=== PATIENT | female | born 1985 | race Caucasian/White ===

== ENCOUNTER 2017-04-18 18:44 | Emergency (ER) | payer OTHER ==
[~2017-04-18] VITALS: Ht 180.3 cm; Wt 127.0 kg
[~2017-04-18 18:44] MED LIST: AMOXICILLIN500 MG PO; AUGMENTIN 875-1 EACH PO; BENTYL10 MG PO; CELEXA40 MG PO; CLINDAMYCIN HC300 MG PO; CYCLOBENZAPRINE10 MG PO; DICYCLOMINE HCL20 MG PO; DOXYCYCLINE HY100 MG PO; ESCITALOPRAM OX20 MG PO; FLAGYL500 MG PO; FLUOXETINE HCL20 MG PO; HYDROCODON-ACE1 EAC3 PO; HYDROCODON-ACE1 EAC8 PO; HYDROCODONE-IB1 EACH PO; IBUPROFEN400 MG PO; IBUPROFEN600 MG PO; LIDOCAINE700 MG TOP; LIDODERM700 MG TOP; MEDROL4 M1 PO; MELOXICAM15 MG PO; METHOCARBAMOL750 MG PO; MIRTAZAPINE45 MG PO; NORCO 5-325 TA1 EACH PO; PERCOCET 5-3251 EACH; PERCOCET 5-3251 EACH PO; PROTONIX40 MG PO; PROZAC20 MG PO; ROBAXIN-750750 MG PO; TRAMADOL HCL50 MG PO; TRAZODONE HCL100 MG PO; TRI-LINYAH1 EACH PO; VICODIN 5-3001 EACH PO; ZOFRAN ODT4 MG SL
[2017-04-18] MEDS ORDERED: CLONIDINE HCL0.1 MG PO (19:32)
[2017-04-18] MEDS ORDERED: BUPRENORPHIN-N1 EACH SL (19:32)
[2017-04-18] MEDS ORDERED: VITAMIN D250000 UNIT PO (19:33)
[2017-04-18] MEDS ORDERED: NORCO 5-325 TA1 EACH PO (22:52)
[2017-04-21] MEDS ORDERED: LAMICTAL25 MG PO (14:58)
== END 2017-04-18 23:26 | disposition home or self-care (01) ==
LOC: ED 18:44
DX: R10.31 Right lower quadrant pain (principal); F32.9 Major depressive disorder, single episode, unspecified; F17.200 Nicotine dependence, unspecified, uncomplicated; Z85.41 Personal history of malignant neoplasm of cervix uteri; Z98.51 Tubal ligation status; Z88.1 Allergy status to other antibiotic agents; Z88.2 Allergy status to sulfonamides; Z98.890 Other specified postprocedural states
CPT/HCPCS: 74177; 80053; 81001; 83690; 84703; 85025; 96374; 99284; J2405; Q9967

== ENCOUNTER 2017-04-24 09:50 | Day surgery (SDC) | payer OTHER ==
[~2017-04-24] VITALS: Ht 180.3 cm; Wt 125.6 kg
[~2017-04-24 09:50] MED LIST changes: +BUPRENORPHIN-N1 EACH SL; +CLONIDINE HCL0.1 MG PO; +LAMICTAL25 MG PO; +VITAMIN D250000 UNIT PO
--- NOTE | 2017-04-24 12:00 | NUR ---
04/24/17 1200 Jackeline Tran 1156-PATIENT ARRIVED TO PACU ON 10L MASK O2 SAT 99% NONAROUSABLE ORAL AIRWAY IN PLACE. ABDOMEN ROUND AND SOFT. PASSING FLATUS. SR
--- NOTE | 2017-04-25 11:50 | OR ---
[facility] [address] [place], [place] [address] Signed DATE OF OPERATION: 04/24/2017 SURGEON: Liza West MD PREOPERATIVE DIAGNOSES: Weight loss, diarrhea, CT scan findings suggestive of cecal concentric mass. POSTOPERATIVE DIAGNOSES: 1. Normal cecum. 2. Mild inflammatory changes, left colon and rectosigmoid. PROCEDURE: Total colonoscopy to cecum with biopsies. ANESTHESIA: Intravenous sedation, propofol infusion. ANESTHESIOLOGIST: Liza Buckley CRNA. INDICATION: This 31-year-old white woman is a patient of Dr. Sergio Mena, but has been evaluated through the emergency room recently with complaints of 30-pound weight loss since December, degenerative disk disease with long-term pain medication, constipation alternating with diarrhea, nausea, vomiting, right-sided abdominal pain, and occasional blood per rectum. She recently was seen in the emergency room where a CT scan was performed which showed a concentric lesion of the cecum suggestive of "stricture or tumor." Given her young age, colon cancer is less likely, inflammatory bowel disease more likely, but with close questioning, her right-sided abdominal pain is variably between the right mid abdomen and right lower quadrant and the possibility of biliary disease considered as well. A gallbladder ultrasound was performed and found to be normal. She is admitted at this time to undergo colonoscopy to rule out a neoplasm of the cecum, mindful that a CCK-HIDA test will likely be undertaken in the near future. She has a strong family history of biliary disease. The risks of bleeding, infection, and perforation related to colonoscopy were reviewed with her. She understands and wished to proceed. FINDINGS: The prep was good. Complete colonoscopy was undertaken to the cecum. Thorough Electronically Signed By: LIZA WEST MD 04/25/17 1150 PATIENT NAME: CHRISTY HECK OPERATIVE REPORT DATE OF : 87 PHYSICIAN: LIZA WEST MD REPORT #: [id number] REPORT IS CONFIDENTIAL AND NOT TO BE RELEASED WITHOUT AUTHORIZATION [facility] [address] [place], [place] [address] Signed examination of the cecum, ileocecal valve area and so forth showed no evidence of lesion. The remaining colon showed no sign of polyps or diverticular formation. There was a fine reticular inflammatory appearance, however, though it did not suggest inflammatory bowel disease to my inspection. Biopsies were taken throughout nevertheless of course. DESCRIPTION OF PROCEDURE: The patient was brought to the endoscopy suite, placed in the lateral decubitus position, and given intravenous sedation with propofol infusional technique by the sorting machine attendant with full cardiopulmonary monitoring. She is morbidly obese with weight of 277 pounds. Digital rectal examination was undertaken and found to be normal. An Olympus video colonoscope was passed in the rectum and manipulated throughout the colon ultimately intubating the cecum and the ileocecal valve. Irrigation was undertaken as needed. The ileocecal valve and appendiceal orifice were normal. Irrigation was undertaken more fully and complete examination of the cecum and proximal ascending colon showed absolutely no concentric lesion to suggest neoplasm or inflammatory bowel disease stricture. The scope was withdrawn from that point. Random biopsies were taken upon withdrawal of scope throughout the colon. There was a fine reticular mucosal appearance of the left colon and sigmoid, but no overt signs of inflammatory bowel disease proper. The patient was taken to the recovery room in good condition. CONCLUDING DIAGNOSIS: No evidence of neoplasm of cecum, unlikely inflammatory bowel disease. PLAN: We will check CCK-HIDA test. Arrangements will be made further and to act upon the results. Liza West MD JM/MODL /[id number] Electronically Signed By: LIZA WEST MD 04/25/17 1150 PATIENT NAME: UMANGCHRISTYPATRICK WILSON OPERATIVE REPORT DATE OF : 87 PHYSICIAN: LIZA WEST MD REPORT #: [id number] REPORT IS CONFIDENTIAL AND NOT TO BE RELEASED WITHOUT AUTHORIZATION [facility] [address] [place] [address] Jeremy [place] [address] Signed cc: Sergio Mena Electronically Signed By: LIZA WEST MD 04/25/17 1150 PATIENT NAME: CHRISTY HECK OPERATIVE REPORT DATE OF : 87 PHYSICIAN: LIZA WEST MD REPORT #: [id number] REPORT IS CONFIDENTIAL AND NOT TO BE RELEASED WITHOUT AUTHORIZATION
== END 2017-04-24 12:55 | disposition home or self-care (01) ==
LOC: OPS 09:50 → DS 09:50 → OPS 11:30 → DS 11:30 → OPS 12:55
PROVIDERS: Surgery
PROC: 0DBL8ZX Excision of Transverse Colon, Via Natural or Artificial Opening Endoscopic, Diagnostic (ICD-10-PCS; 2017-04-24)
PROC: 0DBN8ZX Excision of Sigmoid Colon, Via Natural or Artificial Opening Endoscopic, Diagnostic (ICD-10-PCS; 2017-04-24)
PROC: 0DBP8ZX Excision of Rectum, Via Natural or Artificial Opening Endoscopic, Diagnostic (ICD-10-PCS; 2017-04-24)
PROC: 0DBG8ZX Excision of Left Large Intestine, Via Natural or Artificial Opening Endoscopic, Diagnostic (ICD-10-PCS; 2017-04-24)
PROC: 0DBH8ZX Excision of Cecum, Via Natural or Artificial Opening Endoscopic, Diagnostic (ICD-10-PCS; principal; 2017-04-24 11:30)
DX: K62.6 Ulcer of anus and rectum (principal); E66.01 Morbid (severe) obesity due to excess calories; L65.9 Nonscarring hair loss, unspecified; F17.210 Nicotine dependence, cigarettes, uncomplicated; Z88.1 Allergy status to other antibiotic agents; Z79.899 Other long term (current) drug therapy; Z98.51 Tubal ligation status; Z98.890 Other specified postprocedural states; Z80.0 Family history of malignant neoplasm of digestive organs; Z68.38 Body mass index [BMI] 38.0-38.9, adult
CPT/HCPCS: 00810; J2405; J2704

== ENCOUNTER 2019-04-19 05:35 | Emergency (ER) | payer OTHER ==
[~2019-04-19] VITALS: Ht 180.3 cm; Wt 140.6 kg
--- OUTSIDE RECORDS SUMMARY | ~2019-04-19 | XMS | Encounter Summary ---
Demographics + + + | Address | [address] | | | [place] [address] | + + + | Home Phone | | + + + | Preferred Language | Unknown | + + + | Marital Status | Unknown | + + + | Jehovah'S Witness Affiliation | Unknown | + + + | Race | Unknown | + + + | Ethnic Group | Unknown | + + + Author + + + | Author | [facility] | | | and [place] | + + + | Organization | [facility] | | | and [place] | + + + | Address | Unknown | + + + | Phone | Unavailable | + + + Care Team Providers + +------+ + | Care Strip Catcher Name | Role | Phone | + +------+ + PCP | Unavailable | + +------+ + Encounter Details +--------+ + + + + | Date | Type | Department | Care Team | Description | +--------+ + + + + | 08/19/ | [facility] | [facility] | Lencho Tran MD | | | 2016 | Encounter | [facility] | [address] | | | | | [address] | [facility] [place] | | | | | [address] [facility], | [address] | | | | | [place] [address] | | | | | | [phone] | | | +--------+ + + + [...] on file | | + + + + + + + | Job Start Date | Occupation | Industry | + + + + | Not on file | Not on file | Not on file | + + + + + + + + | Travel History | Travel Start | Travel End | + + + + + + | No recent travel history available. | + + documented as of this encounter Plan of Treatment Not on filedocumented as of this encounter Visit Diagnoses Not on filedocumented in this encounter"
--- OUTSIDE RECORDS SUMMARY | ~2019-04-19 | XMS | Clinical Summary ---
Demographics + + + | Address | [address] | | | [place] [address] | + + + | Home Phone | | + + + | Preferred Language | Unknown | + + + | Marital Status | Unknown | + + + | Latter-Day Affiliation | Unknown | + + + | Race | Unknown | + + + | Ethnic Group | Unknown | + + + Author + + + | Author | [facility] | | | and Rc | + + + | Organization | [facility] | | | and [place] | + + + | Address | Unknown | + + + | Phone | Unavailable | + + + Care Team Providers + +------+ + | Care Test Rider Name | Role | Phone | + [...] recent travel history available. | + + Last Filed Vital Signs + [...] + + Plan of Treatment + + + + + | Health Maintenance | Due Date | Last Done | Comments | + + + + + | Vaccine: | | | | | Dtap/Tdap/Td (1 - | 6 | | | | Tdap) | | | | + + + + + | Cervical Cancer | | | | | Screening (Pap) | 7 | | | + + + + + | Vaccine: Influenza | | | | | (#1) | 9 | | | + + + + + Results Not on filefrom Last 3 Months
--- OUTSIDE RECORDS SUMMARY | ~2019-04-19 | XMS | Encounter Summary ---
Demographics + + + | Address | [address] | | | [place] [address] | + + + | Home Phone | | + + + | Preferred Language | Unknown | + + + | Marital Status | Unknown | + + + | Jewish Affiliation | Unknown | + + + | Race | Unknown | + + + | Ethnic Group | Unknown | + + + Author + + + | Author | [facility] | | | and [place] | + + + | Organization | [facility] | | | and [place] | + + + | Address | Unknown | + + + | Phone | Unavailable | + + + Care Team Providers + +------+ + | Care Canceling And Cutting Control Clerk Name | Role | Phone | + +------+ + PCP | Unavailable | + +------+ + Encounter Details +--------+ + + + + | Date | Type | Department | Care Team | Description | +--------+ + + + + | 08/19/ | [facility] | [facility] | Lencho Tran MD | | | 2016 | Encounter | [facility] | [address] | | | | | [address] | [facility] [place] | | | | | [address] [facility], | [address] | | | | | [place] [address] | | | | | | [phone] | | | +--------+ + + + [...]
--- OUTSIDE RECORDS SUMMARY | ~2019-04-19 | XMS | Clinical Summary ---
Demographics + + + | Address | [address] | | | [place] [address] | + + + | Home Phone | | + + + | Preferred Language | Unknown | + + + | Marital Status | Unknown | + + + | Sabianist Affiliation | Unknown | + + + | Race | Unknown | + + + | Ethnic Group | Unknown | + + + Author + + + | Author | [facility] | | | and Rc | + + + | Organization | [facility] | | | and [place] | + + + | Address | Unknown | + + + | Phone | Unavailable | + + + Care Team Providers + +------+ + | Care Promotional Model Name | Role | Phone | + [...]
[~2019-04-19 05:35] MED LIST changes: +AMITRIPTYLINE H50 MG PO; +GUANFACINE HCL E1 MG PO; +LEVOTHYROXINE25 MCG PO; +LITHIUM CARBON450 MG PO
--- OUTSIDE RECORDS SUMMARY | 2019-04-19 05:38 | XMS ---
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 EJame VISIT COUNT (12 MO.) 4 [facility] TOTAL 4 NOTE: Visits indicate total known visits. ED/UCC VISIT TRACKING (12 MO.) 04/19/2019 05:35 [facility] [place] TYPE: Emergency COMPLAINT: - FLU SYMPTOMS 11/28/2018 06:47 [facility] [place] TYPE: Emergency COMPLAINT: - DENTAL PAIN,NAUSEA DIAGNOSES: - Major depressive disorder, single episode, unspecified - Allergy status to sulfonamides status - Other long term care administrator (current) drug therapy - Nicotine dependence, unspecified, uncomplicated - Allergy status to other antibiotic agents status - Other specified disorders of teeth and supporting structures 04/28/2018 13:50 [facility] [place] TYPE: Emergency COMPLAINT: - FACIAL SWELLING DIAGNOSES: - Periapical abscess without sinus - Allergy status to sulfonamides status - Other long term care administrator (current) drug therapy - Allergy status to other antibiotic agents status - Nicotine dependence, unspecified, uncomplicated - Major depressive disorder, single episode, unspecified - Other specified disorders of teeth and supporting structures 04/28/2018 13:[address] [facility] [place] TYPE: Emergency COMPLAINT: - FACIAL SWELLING DIAGNOSES: - Major depressive disorder, single episode, unspecified - Other specified disorders of teeth and supporting structures - Other senior care (current) drug therapy - Allergy status to sulfonamides status - Nicotine dependence, unspecified, uncomplicated - Allergy status to other antibiotic agents status INPATIENT VISIT TRACKING (12 MO.) No inpatient visits to display in this time frame [email or web address]
[2019-04-19] MEDS ORDERED: CEPHALEXIN500 MG PO (06:08)
== END 2019-04-19 06:22 | disposition home or self-care (01) ==
LOC: ED 05:35
DX: J98.8 Other specified respiratory disorders (principal); B97.89 Other viral agents as the cause of diseases classified elsewhere; F31.9 Bipolar disorder, unspecified; F43.10 Post-traumatic stress disorder, unspecified; F17.200 Nicotine dependence, unspecified, uncomplicated; Z88.2 Allergy status to sulfonamides; Z88.1 Allergy status to other antibiotic agents; Z79.899 Other long term (current) drug therapy
CPT/HCPCS: 87502; 99283

== ENCOUNTER 2020-01-12 12:17 | Emergency (ER) | payer OTHER ==
[~2020-01-12] VITALS: Ht 180.3 cm; Wt 158.8 kg
--- OUTSIDE RECORDS SUMMARY | ~2020-01-12 | XMS | Encounter Summary ---
Demographics + + + | Address | [address] | | | [place] [address] | + + + | Home Phone | | + + + | Preferred Language | Unknown | + + + | Marital Status | Unknown | + + + | Adventism Affiliation | Unknown | + + + | Race | Unknown | + + + | Ethnic Group | Unknown | + + + Author + + + | Author | [facility] | | | and [place] | + + + | Organization | [facility] | | | and iDego[place] | + + + | Address | Unknown | + + + | Phone | Unavailable | + + + Care Team Providers + +------+ + | Care Lab Animal Technician Name | Role | Phone | + +------+ + PCP | Unavailable | + +------+ + Encounter Details +--------+ + + + + | Date | Type | Department | Care Team | Description | +--------+ + + + + | 08/19/ | [facility] | [facility] | Lencho Tran MD | | | 2016 | Encounter | [facility] | [address] | | | | | [address] | [facility] [place] | | | | | [address] [facility], | [address] | | | | | [place] [address] | | | | | | [phone] | | | +--------+ + + + + Social History + +-------+ +--------+------+ | Tobacco Use | Types | Packs/Day | Years | Date | | | | | Used | | + +-------+ +--------+------+ | Never Assessed | | | | | + +-------+ +--------+------+ + + + | Sex Assigned at | Date Recorded | | | | + + + | Not on file | | + + + documented as of this encounter Plan of Treatment Not on filedocumented as of this encounter Visit Diagnoses Not on filedocumented in this encounter"
--- OUTSIDE RECORDS SUMMARY | ~2020-01-12 | XMS | Clinical Summary ---
Demographics + + + | Address | [address] | | | [place] [address] | + + + | Home Phone | | + + + | Preferred Language | Unknown | + + + | Marital Status | Unknown | + + + | Religion Affiliation | Unknown | + + + | Race | Unknown | + + + | Ethnic Group | Unknown | + + + Author + + + | Author | [facility] | | | and Rc | + + + | Organization | [facility] | | | and [place] | + + + | Address | Unknown | + + + | Phone | Unavailable | + + + Care Team Providers + +------+ + | Care Licensing Court Magistrate Name | Role | Phone | + +------+ + PCP | Unavailable | + +------+ + Allergies Not on File Medications Not on file Active Problems Not on file Social History + +-------+ +--------+------+ | Tobacco [...] on file | | + + + Last Filed Vital Signs + + + + + | Vital Sign | Reading | Time Taken | Comments | + + + + + | Blood Pressure | 140/80 | 08/20/2015 11:30 AM | | | | | PDT | | + + + + + | Pulse | 91 | 08/20/2015 11:30 AM | | | | | PDT | | + + + + + | Temperature | - | - | | + + + + + | Respiratory Rate | 20 | 08/20/2015 11:30 AM | | | | | PDT | | + + + + + | Oxygen Saturation | 98% | 08/20/2015 11:30 AM | | | | | PDT | | + + + + + | Inhaled Oxygen | - | - | | | Concentration | | | | + + + + + | Weight | 129.6 kg (285 lb 9.7 | 08/20/2015 11:30 AM | | | | oz) | PDT | | + + + + + | Height | 177.8 cm (5' 10") | 08/20/2015 11:30 AM | | | | | PDT | | + + + + + | Body Mass Index | 40.98 | 08/20/2015 11:30 AM | | | | | PDT | | + + + + + Plan of Treatment + + +-------+ + | Health Maintenance | Due Date | Last | Comments | | | | Done | | + + +-------+ + | Vaccine: | | | | | Dtap/Tdap/Td (1 - | 6 | | | | Tdap) | | | | + + +-------+ + | Cervical Cancer | | | | | Screening (Pap) | 7 | | | + + +-------+ + | Vaccine: Influenza | | | | | (#1) | 0 | | | + + +-------+ + Results Not on filefrom Last 3 Months
[~2020-01-12 12:17] MED LIST changes: +CEPHALEXIN500 MG PO
--- OUTSIDE RECORDS SUMMARY | 2020-01-12 12:20 | XMS ---
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 Reymundo VISIT COUNT (12 MO.) 2 AYAH Swain TOTAL 2 NOTE: Visits indicate total known visits. ED/UCC VISIT TRACKING (12 MO.) 01/12/2020 12:18 [facility] [place] TYPE: Emergency COMPLAINT: - CHEST PRESSURE 04/19/2019 05:35 [facility] [place] TYPE: Emergency COMPLAINT: - FLU SYMPTOMS DIAGNOSES: - Other viral agents as the cause of diseases classified elsew - Bipolar disorder, unspecified - Allergy status to other antibiotic agents status - Other specified respiratory disorders - Nicotine dependence, unspecified, uncomplicated - Other manager terminal (current) drug therapy - Post-traumatic stress disorder, unspecified - Allergy status to sulfonamides status - Cough INPATIENT VISIT TRACKING (12 MO.) No inpatient visits to display in this time frame [email or web address]
[2020-01-12] MEDS ORDERED: GABAPENTIN100 MG (12:37)
--- NOTE | 2020-01-12 13:22 | EKG ---
[facility] [address] [facility] [place] [address] Signed Sinus rhythm with occasional premature ventricular complexes Nonspecific ST abnormality Abnormal ECG No previous ECGs available Confirmed by ESATON VERDUGO MD ([id number]) on 01/12/2020 1:22:30 PM Electronically Signed By: EASTON VERDUGO MD 01/12/20 1322 PATIENT NAME: CHRISTY HECK Electrocardiogram DATE OF : 87 PHYSICIAN: EASTON VERDUGO MD REPORT #: [id number] REPORT IS CONFIDENTIAL AND NOT TO BE RELEASED WITHOUT AUTHORIZATION
== END 2020-01-12 14:43 | disposition home or self-care (01) ==
LOC: ED 12:17
DX: R07.89 Other chest pain (principal); F43.10 Post-traumatic stress disorder, unspecified; F32.9 Major depressive disorder, single episode, unspecified; F17.200 Nicotine dependence, unspecified, uncomplicated; Z88.2 Allergy status to sulfonamides; Z88.1 Allergy status to other antibiotic agents; Z79.899 Other long term (current) drug therapy
CPT/HCPCS: 71045; 80053; 83690; 84484; 85025; 85379; 93005; 93010; 96374; 99285-25; J1885

== ENCOUNTER 2020-04-06 07:33 | Emergency (ER) | payer OTHER ==
[~2020-04-06] VITALS: Ht 180.3 cm; Wt 158.8 kg
--- NOTE | ~2020-04-06 | EKG ---
[facility] [address] [facility] [place], [place] [address] Draft EK completed, results pending confirmation PATIENT NAME: UMANGCHRISTY Electrocardiogram DATE OF : 87 PHYSICIAN: PRELIMINARY REPORT #: [id number] REPORT IS CONFIDENTIAL AND NOT TO BE RELEASED WITHOUT AUTHORIZATION
[~2020-04-06 07:33] MED LIST changes: +GABAPENTIN100 MG
[2020-04-06] MEDS ORDERED: LATUDA40 MG PO (07:51)
[2020-04-06] MEDS ORDERED: PREDNISONE20 MG PO (11:52)
[2020-04-06] MEDS ORDERED: ZITHROMAX250 MG PO (11:52)
--- NOTE | 2020-04-07 13:46 | EKG ---
[facility] [address] [facility] [place], [place] [address] Signed Normal sinus rhythm Normal ECG When compared with ECG of 06-APR-2020 07:53, (Unconfirmed) Previous ECG has undetermined rhythm, needs review Confirmed by SAAD LEVI DO ([id number]) on 04/07/2020 1:45:39 PM Electronically Signed By: SAAD LEVI DO 04/07/20 1346 PATIENT NAME: CHRISTY HECK Electrocardiogram DATE OF : 87 PHYSICIAN: SAAD LEVI DO REPORT #: [id number] REPORT IS CONFIDENTIAL AND NOT TO BE RELEASED WITHOUT AUTHORIZATION
== END 2020-04-06 12:08 | disposition home or self-care (01) ==
LOC: ED 07:33
DX: J40 Bronchitis, not specified as acute or chronic (principal); J02.9 Acute pharyngitis, unspecified; F43.10 Post-traumatic stress disorder, unspecified; F31.81 Bipolar II disorder; F17.200 Nicotine dependence, unspecified, uncomplicated; Z88.1 Allergy status to other antibiotic agents; Z88.2 Allergy status to sulfonamides; Z79.899 Other long term (current) drug therapy; Z20.828 Contact with and (suspected) exposure to other viral communicable diseases
CPT/HCPCS: 71045; 87880; 93005; 93010; 99284-25; C9803; U0003

== ENCOUNTER 2022-12-22 12:09 | Emergency (ER) | payer OTHER ==
[~2022-12-22] VITALS: Ht 180.3 cm; Wt 155.0 kg
--- OUTSIDE RECORDS SUMMARY | ~2022-12-22 | XMS | Continuity of Care Document ---
Demographics + + + | Address | [address] | | | [place] [address] | + + + | Preferred Language | Unknown | + + + | Marital Status | | + + + | Scientology Affiliation | Unknown | + + + | Race | White | + + + | Ethnic Group | Not or | + + + Author + + + | Author | [facility] | + + + | Organization | [facility] | + + + | Address | [address] | | | [place] [address] | + + + | Phone | | + + + Care Team Providers + + + + | Care Machine Skiver Name | Role | Phone | + + + + Unavailable | Unavailable | + + + + Unavailable | Unavailable | + + + + Unavailable | Unavailable | + + + + Allergies and Intolerances + + + + + + | date | description | facility | reaction | severity | + + + + + + | (no date) | Trimethoprim | [facility] | (no reaction) | (no severity) | [facility] | | | + + + + + + | (no date) | Urticaria | [facility] | (no reaction) | (no severity) | | [facility] | | | + + + + + + | (no date) | Trimethoprim | [facility] | (no reaction) | (no severity) | | [facility] | | | + + + + + + | (no date) | Trimethoprim | [facility] | (no reaction) | (no severity) | | [facility] | | | + + + + + + | (no date) | Sulfa | [facility] | (no reaction) | (no severity) | | | (Sulfonamide | | | | | | Antibiotics) | | | | + + + + + + | (no date) | trimethoprim | [facility] | (no reaction) | (no severity) | + + + + + + Encounters No information. Functional Status No information. Immunizations No information. Medications + + + + | date | description | facility | + + + + | 2015-02-14 00:00 | METHOCARBAMOL | [facility] | + + + + | 2015-02-14 00:00 | LIDOCAINE | [facility] | + + + + | 2022-07-29 00:00 | LURASIDONE HCL | [facility] | + + + + | 2022-07-29 00:00 | FLUOXETINE HCL | [facility] | + + + + | 2013 00:00 | OXYCODONE | [facility] | | | HCL/ACETAMINOPHEN | | + + + + | 2022-07-29 00:00 | OXYCODONE | [facility] | | | HCL/ACETAMINOPHEN | | + + + + | 2022-07-29 00:00 | LAMOTRIGINE | [facility] | + + + + | 2014-08-07 00:00 | HYDROCODONE | [facility] | | | BIT/ACETAMINOPHEN | | + + + + | 2022-07-29 00:00 | NORGESTIMATE-ETHINYL | [facility] | | | ESTRADIOL | | + + + + | 2022-07-29 00:00 | ERGOCALCIFEROL (VITAMIN | [facility] | | | D2) | | + + + + | 2022-07-29 00:00 | Ergocalciferol (Vitamin | [facility] | | | D2) | | + + + + | 2022-07-29 00:00 | MELOXICAM | [facility] | + + + + | 2022-07-29 00:00 | GUANFACINE HCL | [facility] | + + + + | 2015-02-06 00:00 | IBUPROFEN | [facility] | + + + + | 2015-02-14 00:00 | IBUPROFEN | [facility] | + + + + | 2015-12-25 00:00 | IBUPROFEN | [facility] | + + + + | 2022-07-29 00:00 | LITHIUM CARBONATE | [facility] | + + + + | 2022-07-29 00:00 | METHOCARBAMOL | [facility] | + + + + | 2020-04-06 00:00 | AZITHROMYCIN | [facility] | + + + + | 2022-07-29 00:00 | CITALOPRAM HYDROBROMIDE | [facility] | + + + + | 2012-10-14 00:00 | CLINDAMYCIN HCL | [facility] | + + + + | 2013-11-19 00:00 | PANTOPRAZOLE SODIUM | [facility] | + + + + | 2018-04-28 00:00 | AMOXICILLIN | [facility] | + + + + | 2019-04-19 00:00 | CEPHALEXIN | [facility] | + + + + | 2022-07-29 00:00 | FLUOXETINE HCL | [facility] | + + + + | 2022-07-29 00:00 | GABAPENTIN | [facility] | + + + + | 2022-07-29 00:00 | MIRTAZAPINE | [facility] | + + + + | 2020-04-06 00:00 | predniSONE | [facility] | + + + + | 2022-07-29 00:00 | SPIRONOLACTONE | [facility] | + + + + | 2022-07-29 00:00 | ESCITALOPRAM OXALATE | [facility] | + + + + | 2022-07-29 00:00 | BUPRENORPHINE HCL/NALOXONE | [facility] | | | HCL | | + + + + | 2022-07-29 00:00 | CYCLOBENZAPRINE HCL | [facility] | + + + + | 2015-02-14 00:00 | methylPREDNISolone | [facility] | + + + + | 2013-11-19 00:00 | TRAMADOL HCL | [facility] | + + + + | 2016-02-12 00:00 | TRAMADOL HCL | [facility] | + + + + | 2022-07-29 00:00 | TRAMADOL HCL | [facility] | + + + + | 2022-07-29 00:00 | DICLOFENAC SODIUM | [facility] | + + + + | 2022-07-29 00:00 | TRAZODONE HCL | [facility] | + + + + | 2022-07-29 00:00 | AMITRIPTYLINE HCL | [facility] | + + + + | 2022-07-29 00:00 | HYDROCODONE | [facility] | | | BIT/ACETAMINOPHEN | | + + + + | 2022-07-29 00:00 | HYDROCODONE | [facility] | | | BIT/ACETAMINOPHEN | | + + + + | 2012-10-14 00:00 | HYDROCODONE | [facility] | | | BIT/ACETAMINOPHEN | | + + + + | 2015-02-06 00:00 | HYDROCODONE | [facility] | | | BIT/ACETAMINOPHEN | | + + + + | 2017-04-18 00:00 | HYDROCODONE | [facility] | | | BIT/ACETAMINOPHEN | | + + + + | 2022-07-29 00:00 | GUANFACINE HCL | [facility] | + + + + | 2022-07-29 00:00 | METOPROLOL SUCCINATE | [facility] | + + + + | 2013 00:00 | ONDANSETRON | [facility] | + + + + | 2022-07-29 00:00 | CLONIDINE HCL | [facility] | + + + + | 2022-07-29 00:00 | LEVOTHYROXINE SODIUM | [facility] | + + + + | 2013-12-13 00:00 | DICYCLOMINE HCL | [facility] | + + + + | 2022-07-29 00:00 | DICYCLOMINE HCL | [facility] | + + + + Problems + + + + | date | description | facility | + + + + | 2014-07-22 00:00 | Vaginal bleeding | [facility] | + + + + | 2014-07-24 00:00 | Acute infection of female | [facility] | | | upper reproductive tract | | + + + + | 2014-07-24 00:00 | Pain in pelvis | [facility] | + + + + | 2014-08-07 00:00 | Dysfunctional uterine | [facility] | | | bleeding | | + + + + | 2015-02-06 00:00 | Sciatica of left side | [facility] | + + + + | 2015-02-06 00:00 | Pain of left lower | [facility] | | | extremity | | + + + + | 2015-02-14 00:00 | Lumbar back pain with | [facility] | | | radiculopathy affecting | | | | left lower extremity | | + + + + | 2015-02-14 00:00 | Sciatica | [facility] | + + + + | 2015-09-10 00:00 | Headache | [facility] | + + + + | 2015-10-19 00:00 | Frontal headache | [facility] | + + + + | 2015-12-25 00:00 | Toothache | [facility] | + + + + | 2016-02-12 00:00 | Leukocytosis | [facility] | + + + + | 2016-02-12 00:00 | Recurrent abdominal pain | [facility] | + + + + | 2017-04-18 00:00 | Right lower quadrant | [facility] | | | abdominal pain | | + + + + | 2018-04-28 00:00 | Periapical abscess | [facility] | + + + + | 2018-04-28 00:00 | Encounter for medical | [facility] | | | screening examination | | + + + + | 2019-04-19 00:00 | Viral respiratory | [facility] | | | infection | | + + + + | 2020-04-06 00:00 | Pharyngitis | [facility] | + + + + | 2020-04-06 00:00 | Bronchitis | [facility] | + + + + | 2020-04-06 00:00 | Shortness of breath | [facility] | + + + + | 2021-10-12 00:00 | Patient left without being | [facility] | | | seen | | + + + + | 2022-03-19 12:29 | EFFUSION, LEFT KNEE | [facility] | + + + + | 2022-03-19 12:29 | SPRAIN OF OTHER SPECIFIED | [facility] | | | PARTS OF LEFT KNEE, INIT | | | | ENCNTR | | + + + + | 2022-05-05 13:48 | EFFUSION, LEFT KNEE | [facility] | + + + + | 2022-05-05 13:48 | OTH TEAR OF MEDIAL | [facility] | | | MENISCUS, CURRENT INJURY, | | | | LEFT KNEE, INIT | | + + + + | 2022-07-26 14:42 | ENCOUNTER FOR OTHER | [facility] | | | PREPROCEDURAL EXAMINATION | | + + + + | 2022-07-29 06:25 | Essential (primary) | [facility] | | | hypertension | | + + + + | 2022-07-29 06:25 | OTH TEAR OF MEDIAL | [facility] | | | MENISCUS, CURRENT INJURY, | | | | LEFT KNEE, INIT | | + + + + | 2022-07-29 06:25 | OTH TEAR OF MEDIAL | [facility] | | | MENISCUS, CURRENT INJ | | + + + + | 2022-10-31 14:52 | MASTODYNIA | [facility] | + + + + | 2022-10-31 15:00 | MASTODYNIA | [facility] | + + + + | 2022-12-14 06:43 | FATTY (CHANGE OF) LIVER, | [facility] | | | NOT ELSEWHERE C | | + + + + | 2022-12-14 06:43 | FATTY (CHANGE OF) LIVER, | [facility] | | | NOT ELSEWHERE CLASSIFIED | | + + + + | 2022-12-14 06:43 | HEPATOMEGALY, NOT | [facility] | | | ELSEWHERE CLASSIFIED | | + + + + | 2022-12-14 07:00 | FATTY (CHANGE OF) LIVER, | [facility] | | | NOT ELSEWHERE C | | + + + + Procedures No information. Results/Labs +--------+--------+ +---------+--------+---------+ | test | date | facility | value | unit | notes | +--------+--------+ +---------+--------+---------+ + + | Result panel 1 | + + + + + +-------+ + + | | 2022-07-26 | [facility] | 6.5 | (missing) | (missing) | | (unavailable | [facility]:07 [facility] | | | | + + + +-------+ + + + + | Result panel 2 | + + + + + +--------+ + + | | 2022-07-26 | [facility] | 50.8 | (missing) | (missing) | | (unavailable | 15:01:07 [facility] | | | | + + + +--------+ + + + + | Result panel 3 | + + + + + +--------+ + + | | 2022-07-26 | [facility] | 39.5 | (missing) | (missing) | | (unavailable | 15::07 [facility] | | | | + + + +--------+ + + + + | Result panel 4 | + + + + + +-------+ + + | | 2022-07-26 | [facility] | 5.5 | (missing) | (missing) | | (unavailable | 15::07 [facility] | | | | + + + +-------+ + + + + | Result panel 5 | + + + + + +-------+ + + | | 2022-07-26 | [facility] | 3.4 | (missing) | (missing) | | (unavailable | 15:: [facility] | | | | + + + +-------+ + + + + | Result panel 6 | + + + + + +-------+ + + | | 2022-07-26 | [facility] | 0.8 | (missing) | (missing) | | (unavailable | 15::07 [facility] | | | | + + + +-------+ + + + + | Result panel 7 | + + + + + +-------+---------+ + | | 2022-07-26 | [facility] | 111 | mg/dL | (missing) | | (unavailable | 15::07 [facility] | | | | + + + +-------+---------+ + + + | Result panel 8 | + + + + + +-----+---------+ + | | 2022-07-26 | [facility] | 8 | mg/dL | (missing) | | (unavailable | 15::07 [facility] | | | | + + + +-----+---------+ + + + | Result panel 9 | + + + + + +--------+---------+ + | | 2022-07-26 | [facility] | 0.97 | mg/dL | (missing) | | (unavailable | 15:01:07 [facility] | | | | + + + +--------+---------+ + + + | Result panel 10 | + + + + + +------+ + + | | 2022-07-26 | [facility] | 78 | (missing) | (missing) | | (unavailable | 15:01:07 [facility] | | | | + + + +------+ + + + + | Result panel 11 | + + + + + +--------+ + + | | 2022-07-26 | [facility] | 8.24 | (missing) | (missing) | | (unavailable | 15:01:07 [facility] | | | | + + + +--------+ + + + + | Result panel 12 | + + + + + +--------+ + + | | 2022-07-26 | [facility] | 4.19 | (missing) | (missing) | | (unavailable | 15:01:07 [facility] | | | | + + + +--------+ + + + + | Result panel 13 | + + + + + +-------+ + + | | 2022-07-26 | [facility] | 142 | (missing) | (missing) | | (unavailable | 15:: | [facility] | | | | + + + +-------+ + + + + | Result panel 14 | + + + + + +-------+ + + | | 2022-07-26 | [facility] | 4.2 | (missing) | (missing) | | (unavailable | 15::07 [facility] | | | | + + + +-------+ + + + + | Result panel 15 | + + + + + +-------+ + + | | 2022-07-26 | [facility] | 103 | (missing) | (missing) | | (unavailable | 15:01:07 [facility] | | | | + + + +-------+ + + + + | Result panel 16 | + + + + + +------+ + + | | 2022-07-26 | [facility] | 32 | (missing) | (missing) | | (unavailable | 15:01:07 [facility] | | | | + + + +------+ + + + + | Result panel 17 | + + + + + +--------+ + + | | 2022-07-26 | [facility] | 11.2 | (missing) | (missing) | | (unavailable | 15: [facility] | | | | + + + +--------+ + + + + | Result panel 18 | + + + + + +-------+---------+ + | | 2022-07-26 | [facility] | 9.0 | mg/dL | (missing) | | (unavailable | 15:07 [facility] | | | | + + + +-------+---------+ + + + | Result panel 19 | + + + + + +-------+ + + | | 2022-07-26 | [facility] | 6.8 | (missing) | (missing) | | (unavailable | 15::07 [facility] | | | | + + + +-------+ + + + + | Result panel 20 | + + + + + +-------+ + + | | 2022-07-26 | [facility] | 3.8 | (missing) | (missing) | | (unavailable | 15::07 [facility] | | | | + + + +-------+ + + + + | Result panel 21 | + + + + + +-------+ + + | | 2022-07-26 | [facility] | 3.0 | (missing) | (missing) | | (unavailable | 15:01:07 [facility] | | | | + + + +-------+ + + + + | Result panel 22 | + + + + + +--------+ + + | | 2022-07-26 | [facility] | 1.27 | (missing) | (missing) | | (unavailable | 15:01:07 [facility] | | | | + + + +--------+ + + + + | Result panel 23 | + + + + + +--------+ + + | | 2022-07-26 | [facility] | 12.8 | (missing) | (missing) | | (unavailable | 15::07 [facility] | | | | + + + +--------+ + + + + | Result panel 24 | + + + + + +-------+ + + | | 2022-07-26 | [facility] | 0.2 | (missing) | (missing) | | (unavailable | 15:01:07 [facility] | | | | + + + +-------+ + + + + | Result panel 25 | + + + + + +------+ + + | | 2022-07-26 | [facility] | 20 | (missing) | (missing) | | (unavailable | 15:01:07 [facility] | | | | + + + +------+ + + + + | Result panel 26 | + + + + + +------+ + + | | 2022-07-26 | [facility] | 28 | (missing) | (missing) | | (unavailable | 15:01:07 [facility] | | | | + + + +------+ + + + + | Result panel 27 | + + + + + +------+ + + | | 2022-07-26 | [facility] | 31 | (missing) | (missing) | | (unavailable | 15:01:07 [facility] | | | | + + + +------+ + + + + | Result panel 28 | + + + + + +--------+ + + | | 2022-07-26 | [facility] | 38.2 | (missing) | (missing) | | (unavailable | 15:01:07 [facility] | | | | + + + +--------+ + + + + | Result panel 29 | + + + + + +--------+ + + | | 2022-07-26 | [facility] | 91.3 | (missing) | (missing) | | (unavailable | 15:01:07 [facility] | | | | + + + +--------+ + + + + | Result panel 30 | + + + + + +--------+ + + | | 2022-07-26 | [facility] | 30.7 | (missing) | (missing) | | (unavailable | 15:01:07 [facility] | | | | + + + +--------+ + + + + | Result panel 31 | + + + + + +--------+ + + | | 2022-07-26 | [facility] | 33.6 | (missing) | (missing) | | (unavailable | 15:01:07 [facility] | | | | + + + +--------+ + + + + | Result panel 32 | + + + + + +--------+ + + | | 2022-07-26 | [facility] | 13.1 | (missing) | (missing) | | (unavailable | 15:01:07 [facility] | | | | + + + +--------+ + + + + | Result panel 33 | + + + + + +-------+ + + | | 2022-07-26 | [facility] | 232 | (missing) | (missing) | | (unavailable | 15:01:07 [facility] | | | | + + + +-------+ + + + + | Result panel 34 | + + + + + + + + + | | 2022-07-29 | [facility] | NEGATIVE | (missing) | (missing) | | (unavailable | 06:58:07 [facility] | | | | + + + + + + + Social History No information. Vital Signs + + + +---------+ | date | measurement | value | units | + + + +---------+ | 2022-07-26 00:00 | BMI | 49.5 | kg/m2 | + + + +---------+ | 2022-07-26 00:00 | height_metric | 180.34 | cm | + + + +---------+ | 2022-07-26 00:00 | height_standard | 71 | in | + + + +---------+ | 2022-07-26 00:00 | weight_metric | 161 | kg | + + + +---------+ | 2022-07-26 00:00 | weight_standard | 354.94 | lb | + + + +---------+ | 2022-07-29 00:00 | BP_diastolic | 75 | mmHg | + + + +---------+ | 2022-07-29 00:00 | BP_systolic | 120 | mmHg | + + + +---------+ | 2022-07-29 00:00 | heart_rate | 63 | /min | + + + +---------+ | 2022-07-29 00:00 | o2_saturation | 95 | % | + + + +---------+ | 2022-07-29 00:00 | respiration_rate | 16 | /min | + + + +---------+ | 2022-07-29 00:00 | temperature_metric | 36.56 | C | | | | | | + + + +---------+ | 2022-07-29 00:00 | | 97.8 | F | | | temperature_standar | | | | | d | | | + + + +---------+"
--- OUTSIDE RECORDS SUMMARY | ~2022-12-22 | XMS | Continuity of Care Document ---
Demographics + + + | Address | [address] | | | [place] [address] | + + + | Preferred Language | Unknown | + + + | Marital Status | | + + + | Denominational Affiliation | Unknown | + + + | Race | White | + + + | Ethnic Group | Not or | + + + Author + + + | Author | [place] | + + + | Organization | [facility] | + + + | Address | [address] | | | [place] [address] | + + + | Phone | | + + + Care Team Providers + + + + | [employer] Employee Name | Role | Phone | + [...] + | 2015-02-14 00:00 | METHOCARBAMOL | [facility] | + + + + | 2015-02-14 00:00 | LIDOCAINE | [facility] | + + + + | 2022-07-29 00:00 | LURASIDONE HCL | [facility] | + + + + | 2022-07-29 00:00 | FLUOXETINE HCL | [facility] | + + + + | 2013 00:00 | OXYCODONE | [facility] | | | HCL/ACETAMINOPHEN | | + + + + | 2022-07-29 00:00 | OXYCODONE | [facility] | | | HCL/ACETAMINOPHEN | | + + + + | 2022-07-29 00:00 | LAMOTRIGINE | [facility] | + + + + | 2014-08-07 00:00 | HYDROCODONE | [facility] | | | BIT/ACETAMINOPHEN | | + + + + | 2022-07-29 00:00 | NORGESTIMATE-ETHINYL | [facility] | | | ESTRADIOL | | + + + + | 2022-07-29 00:00 | ERGOCALCIFEROL (VITAMIN | [facility] | | | D2) | | + + + + | 2022-07-29 00:00 | Ergocalciferol (Vitamin | [facility] | | | D2) | | + + + + | 2022-07-29 00:00 | MELOXICAM | [facility] | + + + + | 2022-07-29 00:00 | GUANFACINE HCL | [facility] | + + + + | 2015-02-06 00:00 | IBUPROFEN | [facility] | + + + + | 2015-02-14 00:00 | IBUPROFEN | [facility] | + + + + | 2015-12-25 00:00 | IBUPROFEN | [facility] | + + + + | 2022-07-29 00:00 | LITHIUM CARBONATE | [facility] | + + + + | 2022-07-29 00:00 | METHOCARBAMOL | [facility] | + + + + | 2020-04-06 00:00 | AZITHROMYCIN | [facility] | + + + + | 2022-07-29 00:00 | CITALOPRAM HYDROBROMIDE | [facility] | + + + + | 2012-10-14 00:00 | CLINDAMYCIN HCL | [facility] | + + + + | 2013-11-19 00:00 | PANTOPRAZOLE SODIUM | [facility] | + + + + | 2018-04-28 00:00 | AMOXICILLIN | [facility] | + + + + | 2019-04-19 00:00 | CEPHALEXIN | [facility] | + + + + | 2022-07-29 00:00 | FLUOXETINE HCL | [facility] | + + + + | 2022-07-29 00:00 | GABAPENTIN | [facility] | + + + + | 2022-07-29 00:00 | MIRTAZAPINE | [facility] | + + + + | 2020-04-06 00:00 | predniSONE | [facility] | + + + + | 2022-07-29 00:00 | SPIRONOLACTONE | [facility] | + + + + | 2022-07-29 00:00 | ESCITALOPRAM OXALATE | [facility] | + + + + | 2022-07-29 00:00 | BUPRENORPHINE HCL/NALOXONE | [facility] | | | HCL | | + + + + | 2022-07-29 00:00 | CYCLOBENZAPRINE HCL | [facility] | + + + + | 2015-02-14 00:00 | methylPREDNISolone | [facility] | + + + + | 2013-11-19 00:00 | TRAMADOL HCL | [facility] | + + + + | 2016-02-12 00:00 | TRAMADOL HCL | [facility] | + + + + | 2022-07-29 00:00 | TRAMADOL HCL | [facility] | + + + + | 2022-07-29 00:00 | DICLOFENAC SODIUM | [facility] | + + + + | 2022-07-29 00:00 | TRAZODONE HCL | [facility] | + + + + | 2022-07-29 00:00 | AMITRIPTYLINE HCL | [facility] | + + + + | 2022-07-29 00:00 | HYDROCODONE | [facility] | | | BIT/ACETAMINOPHEN | | + + + + | 2022-07-29 00:00 | HYDROCODONE | [facility] | | | BIT/ACETAMINOPHEN | | + + + + | 2012-10-14 00:00 | HYDROCODONE | [facility] | | | BIT/ACETAMINOPHEN | | + + + + | 2015-02-06 00:00 | HYDROCODONE | [facility] | | | BIT/ACETAMINOPHEN | | + + + + | 2017-04-18 00:00 | HYDROCODONE | [facility] | | | BIT/ACETAMINOPHEN | | + + + + | 2022-07-29 00:00 | GUANFACINE HCL | [facility] | + + + + | 2022-07-29 00:00 | METOPROLOL SUCCINATE | [facility] | + + + + | 2013 00:00 | ONDANSETRON | [facility] | + + + + | 2022-07-29 00:00 | CLONIDINE HCL | [facility] | + + + + | 2022-07-29 00:00 | LEVOTHYROXINE SODIUM | [facility] | + + + + | 2013-12-13 00:00 | DICYCLOMINE HCL | [facility] | + + + + | 2022-07-29 00:00 | DICYCLOMINE HCL | [facility] | + + + + Problems + + + + | date | description | facility | + + + + | 2014-07-22 00:00 | Vaginal bleeding | [facility] | + + + + | 2014-07-24 00:00 | Acute infection of female | [facility] | | | upper reproductive tract | | + + + + | 2014-07-24 00:00 | Pain in pelvis | [facility] | + + + + | 2014-08-07 00:00 | Dysfunctional uterine | [facility] | | | bleeding | | + + + + | 2015-02-06 00:00 | Sciatica of left side | [facility] | + + + + | 2015-02-06 00:00 | Pain of left lower | [facility] | | | extremity | | + + + + | 2015-02-14 00:00 | Lumbar back pain with | [facility] | | | radiculopathy affecting | | | | left lower extremity | | + + + + | 2015-02-14 00:00 | Sciatica | [facility] | + + + + | 2015-09-10 00:00 | Headache | [facility] | + + + + | 2015-10-19 00:00 | Frontal headache | [facility] | + + + + | 2015-12-25 00:00 | Toothache | [facility] | + + + + | 2016-02-12 00:00 | Leukocytosis | [facility] | + + + + | 2016-02-12 00:00 | Recurrent abdominal pain | [facility] | + + + + | 2017-04-18 00:00 | Right lower quadrant | [facility] | | | abdominal pain | | + + + + | 2018-04-28 00:00 | Periapical abscess | [facility] | + + + + | 2018-04-28 00:00 | Encounter for medical | [facility] | | | screening examination | | + + + + | 2019-04-19 00:00 | Viral respiratory | [facility] | | | infection | | + + + + | 2020-04-06 00:00 | Pharyngitis | [facility] | + + + + | 2020-04-06 00:00 | Bronchitis | [facility] | + + + + | 2020-04-06 00:00 | Shortness of breath | [facility] | + + + + | 2021-10-12 00:00 | Patient left without being | [facility] | | | seen | | + [...]
[~2022-12-22 12:09] MED LIST changes: +DICLOFENAC SODI75 MG PO; -GABAPENTIN100 MG; +GABAPENTIN100 MG PO; +GUANFACINE HCL1 MG PO; +HYDROCODON-ACE1 EA10 PO; +LATUDA40 MG PO; +METOPROLOL SUC100 MG PO; +PREDNISONE20 MG PO; +SPIRONOLACTONE25 MG PO; +VITAMIN D21250 MCG PO; +ZITHROMAX250 MG PO
--- OUTSIDE RECORDS SUMMARY | 2022-12-22 12:12 | XMS ---
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 - Patient with suicidal and/or homicidal ideations eloped. - Patient eloped with IV in place. Details: PATIENT LWBS CRITERIA MET - [facility] CARE PROVIDERS -[place]- Dentist: Print Inspector [facility] PHONE: [phone] TIFFANY JACQUES Physician 11/29/2018-Current PHONE: [phone] ELISHA GARCIA [facility] Current PHONE: [phone] Leighton has no Care Guidelines for this patient. Reymundo VISIT COUNT (12 MO.) 1 AYAH Swain TOTAL 1 NOTE: Visits indicate total known visits. ED/UCC VISIT TRACKING (12 MO.) 12/22/2022 12:10 [facility] [place] TYPE: Emergency COMPLAINT: - NECK/R SHOULDER/R ARM SPASM INPATIENT VISIT TRACKING (12 MO.) No inpatient visits to display in this time frame [email or web address]
[2022-12-22] MEDS ORDERED: DICYCLOMINE HCL10 MG PO (12:40)
[2022-12-22] MEDS ORDERED: MEDROXYPRO150 MG/1 M IM (12:40)
[2022-12-22] MEDS ORDERED: GABAPENTIN300 MG PO (12:40)
[2022-12-22] MEDS ORDERED: PREDNISONE20 MG PO (15:04)
[2022-12-22] MEDS ORDERED: METHOCARBAMOL750 MG PO (15:04)
[2022-12-22 15:14] VITALS: BP 156/109
== END 2022-12-22 15:14 | disposition home or self-care (01) ==
LOC: ED 12:09
DX: M62.838 Other muscle spasm (principal); F17.200 Nicotine dependence, unspecified, uncomplicated; Z88.1 Allergy status to other antibiotic agents; Z88.2 Allergy status to sulfonamides; Z79.899 Other long term (current) drug therapy; Z79.890 Hormone replacement therapy
CPT/HCPCS: 96372; 99283; A9270; J1885; J7512

== ENCOUNTER 2024-08-22 13:53 | Observation (INO) | payer OTHER ==
[~2024-08-22] VITALS: Ht 180.3 cm; Wt 157.4 kg
[~2024-08-22 13:53] MED LIST changes: +DICYCLOMINE HCL10 MG PO; +GABAPENTIN300 MG PO; +MEDROXYPRO150 MG/1 M IM
[2024-08-22] MEDS ORDERED: ondansetron HCL 4 MG/2 ML VIAL IV ONE (14:15)
[2024-08-22] MEDS ORDERED: SODIUM CHLORIDE 0.9% 1,000 ML IV ONE (14:15)
[2024-08-22 14:19] LABS: BASOPHILS 0.5 % (0-2); EOSINOPHILS 2.1 % (0-6); HEMATOCRIT 46.6 % (35.0-50.0); HEMOGLOBIN 15.9 g/dL (12.0-18.0); MCH 30.4 (27-36); MCHC 34.2 g/dl (30-36); MCV 88.8 fl (81-99); MONOCYTES 7.1 % (0-12); NEUTROPHILS 68.3 % (39-80); PLATELET COUNT 305 K/uL (140-440); RBC 5.24 M/ul (4.3-5.7); RDW 13.8 (10.5-15.0)
[2024-08-22] MEDS ORDERED: TRAZODONE HCL50 MG PO (14:23)
[2024-08-22] MEDS ORDERED: HYDROXYZINE HCL25 MG PO (14:23)
[2024-08-22 14:33] LABS: ALBUMIN 4.5 g/dL (3.4-5.0); ALBUMIN/GLOBULIN RATIO 1.25 (1.1-2.4); ANION GAP 12.8 (7-21); BILIRUBIN, TOTAL 0.8 mg/dL (0.2-1.0); BUN/CREATININE RATIO 14.28 (6.0-28.6); CALCIUM 9.5 mg/dL (8.5-10.1); CREATININE, SERUM 0.98 mg/dL (0.55-1.02); POTASSIUM 3.8 mmol/L (3.5-5.1); PROTEIN, TOTAL 8.1 g/dL (6.4-8.2)
[2024-08-22] MEDS ORDERED: MORPHINE SULFATE 4 MG/ML VIAL IV ONE (14:45)
[2024-08-22] MEDS ORDERED: SUCRALFATE 1 GM TAB PO ONE (15:15)
[2024-08-22] MEDS ORDERED: PANTOPRAZOLE SODIUM 40 MG/10 ML VIAL IV ONE (15:15)
[2024-08-22] MEDS ORDERED: HYDROmorphone HCL 1 MG/ML SYR IV ONE ×2 (16:00→18:00)
[2024-08-22 17:26] LABS: BILIRUBIN, URINE NEGATIVE (negative); BLOOD/HGB, URINE TRACE-L (Negative); KETONE, URINE >=80 (Negative); LEUK ESTERASE, URINE NEGATIVE (negative); NITRITE, URINE NEGATIVE (negative)
[2024-08-22 17:32] LABS: BACTERIA, URINE NONE SEEN /hpf (negative); CASTS, URINE NONE SEEN \\lpf; COLLECTION TYPE, URINE CLEAN CATCH; CRYSTALS, URINE NONE SEEN (0-1+); EPITHELIAL CELLS, URINE SQUAMOUS 3+ /lpf (0-1+); RED BLOOD CELLS, URINE 0-1 /hpf (0-5); REFLEX CULTURE, URINE No (No); WHITE BLOOD CELLS, URINE 0-1 /HPF (0-5)
[2024-08-22] MEDS ORDERED: LIDOCAINE & ANTACID 35 ML BTL PO ONE (18:45)
[2024-08-22] MEDS ORDERED: ACETAMINOPHEN 325 MG TAB PO PRN (19:15)
[2024-08-22] MEDS ORDERED: LACTATED RINGER'S 1,000 ML IV SCH (19:15)
[2024-08-22] MEDS ORDERED: ondansetron HCL 4 MG/2 ML VIAL IV PRN (19:15)
--- NOTE | 2024-08-22 19:25 | EKG ---
[facility] [address] [place], [place] [address] Signed Sinus bradycardia with sinus arrhythmia Otherwise normal ECG When compared with ECG of 26-JUL-2022 13:50, No significant change was found Confirmed by Jerry Cagle MD ([id number]) on 08/22/2024 7:25:15 PM Electronically Signed By: JERRY CAGLE MD 08/22/241924 PATIENT NAME: CHRISTY HECK Electrocardiogram DATE OF : 87 PHYSICIAN: JERRY CAGLE MD REPORT #: [id number] REPORT IS CONFIDENTIAL AND NOT TO BE RELEASED WITHOUT AUTHORIZATION
[2024-08-22] MEDS ORDERED: MORPHINE SULFATE 4 MG/ML VIAL IV PRN (19:30)
[2024-08-22] MEDS ORDERED: OXYCODONE HCL 5 MG TAB PO PRN (19:30)
[2024-08-22] MEDS ORDERED: TRAZODONE HCL 50 MG TAB PO PRN (19:30)
--- NOTE | 2024-08-22 20:50 | NUR ---
RECEIVED REPORT FROM ED SALVADOR MCKEON, pt STEADY ON FEET AND VOIDED 200MLS URINE UPON ENTERING ROOM. STANDING WEIGHT OBTAINED AND pt IN BED, ORIENTED TO ROOM AND POC. VSS, pt ON RA. RR EVEN AND UNLABORED. IN ROOM. ADMISSION COMPLETED AND CALL LIGHT AND PERSONAL BELONGINGS IN REACH. pt HAS UPPER DENTURES IN PLACE, GAVE JEWERLY TO TO TAKE HOME. TO RETURN WITH pt's CPAP MACHINE, RT ALICIA MADE AWARE. REPORT GIVEN TO PRIMARY SALVADOR ESTRADA SHE IS TAKING OVER pt CARE.
[2024-08-22 20:57] VITALS: BP 121/60
[2024-08-22] MEDS ORDERED: FAMOTIDINE 20 MG/ 2 ML VIAL IV SCH (21:00)
--- NOTE | 2024-08-22 22:47 | NUR ---
CHRISTY'S BROUGHT IN HER HOME RESMED UNIT. RT SET IT UP AND FILLED WITH WATER, READY FOR CHRISTY TO WEAR.
--- NOTE | 2024-08-22 22:50 | NUR ---
CALL LIGHT ANSWERED, PATIENT REQUESTED PRN MEDICATION TO HELP HER SLEEP. ADMINISTERED PER EMAR. PATIENT IN NAD, DENIES OTHER NEEDS, CALL LIGHT IN REACH.
--- NOTE | 2024-08-22 23:30 | NUR ---
PATIENT RESTING WITH EYES CLOSED, RESP EVEN AND UNLABORED. SIG OTHER SLEEPING ON COUCH IN ROOM. PATIENT HAS CPAP AT BEDSIDE WHICH IS CHRONIC. IVF CONTINUING TO INFUSE PER ORDER, NO NEEDS IDENTIFIED, CALL LIGHT IN REACH
--- NOTE | 2024-08-22 23:59 | NUR ---
RN CALLED TO BEDSIDE, PATIENT REPORTS 7/10 ABD PAIN AND REPORTS EPISODE OF EMESIS DUE TO PAIN. PRN PAIN IMMIGRATION MANAGER. PATIENT DENIES FEELING THE NEED TO VOMIT AGAIN, DENIES NEEDING NAUSEA MED AT THIS TIME. PATIENT ALSO GIVEN HEAT PACK FOR ABD PER REQUEST. SIG OTHER IN ROOM ON COUCH. CALL LIGHT IN REACH, IVF CONTINUE TO INFUSE PER ORDER.
[2024-08-23] VITALS (10 sets, daily range): BP systolic 115–162; BP diastolic 60–95
--- NOTE | 2024-08-23 00:40 | NUR ---
CALL LIGHT ANSWERED. PT NEEDED TO USE BATHROOM. EP TECHNOLOGIST SBA TO BATHROOM. PT VOIDED AND ASSISTED BACK TO BED. PT STATES NO FURTHER NEEDS AT THIS TIME. CALL LIGHT WITHIN REACH.
--- NOTE | 2024-08-23 00:57 | NUR ---
PRN ZOFREAN ADMINISTERED PER EMAR. PT CONTINUALLY MOANING AND RESTLESS.
--- NOTE | 2024-08-23 01:58 | NUR ---
STACKER TENDER OBTAINED VITALS AND I&O. PT ASKING FOR PAIN MEDS. RN NOTIFED. PT STATES NO FURTHER NEEDS AT THIS TIME. CALL LIGHT WITHIN REACH.
--- NOTE | 2024-08-23 02:48 | NUR ---
PRN PAIN MEDICATION ADMIN PER PATIENT REQUEST FOR 11/14 PAIN. PATIENT PLACED CPAP MACHINE ON SELF, AND LAYED DOWN TO REST. RESP EVEN AND UNLABORED. NO FURTHER NEEDS, CALL LIGHT IN REACH.
--- NOTE | 2024-08-23 04:36 | NUR ---
PATIENT RESTING WITH EYES CLOSED, RESP EVEN AND UNLABORED. CPAP IN USE. NO FURTHER NEEDS IDENTIFIED, CALL LIGHT IN REACH.
[2024-08-23 05:42] LABS: BASOPHILS 0.3 % (0-2); EOSINOPHILS 0.2 % (0-6); HEMATOCRIT 39.2 % (35.0-50.0); HEMOGLOBIN 13.4 g/dL (12.0-18.0); LYMPHOCYTES 13.9 % (24-44); MCH 30.1 (27-36); MCHC 34.3 g/dl (30-36); MCV 87.9 fl (81-99); MONOCYTES 5.7 % (0-12); NEUTROPHILS 79.9 % (39-80); PLATELET COUNT 241 K/uL (140-440); RBC 4.46 M/ul (4.3-5.7); RDW 13.6 (10.5-15.0)
--- NOTE | 2024-08-23 06:00 | NUR ---
VS OBTAINED AND RECORDED. PATIENT RESTING IN BED WITH CPAP IN PLACE. DENIES NEEDS. NEW IVF BAG HUNG, CONTINUES TO INFUSE PER ORDER. CALL LIGHT IN REACH
[2024-08-23 06:03] LABS: ANION GAP 14.6 (7-21); BUN/CREATININE RATIO 17.14 (6.0-28.6); CALCIUM 8.5 mg/dL (8.5-10.1); CREATININE, SERUM 0.7 mg/dL (0.55-1.02); MAGNESIUM 2.1 mg/dL (1.8-2.4); POTASSIUM 3.6 mmol/L (3.5-5.1)
--- NOTE | 2024-08-23 06:46 | NUR ---
TC TO DR. MCKEON TO CLARIFY LAB ORDER. PER DR. MCKEON, PATIENT IS NOT GETTING A BIOPSY, CANCEL H. PYLORI LAB TEST. PROVIDER GIVEN UPDATE REGARDING CONDITION AND PAIN MEDICATION GIVEN THROUGHOUT THE NIGHT. NO NEW ORDERS.
--- NOTE | 2024-08-23 07:00 | NUR ---
Pt report received from SALVADOR Tate. When we entered the room, pt was asleep, on her right side, wearing her CPAP. White board updated. Pt awakens and states, immediately while pressing on the center of her chest, that her chest hurts. VS assessed and are stable. Pt states that her chest pain does not increase with breathing, reports that it is sharp and constant. She denies having eaten anything. She states that it feels better when she presses down on the area that hurts. Advised pt that I will notify the hospitalist. Side rails up, call light in reach.
--- NOTE | 2024-08-23 08:09 | NUR ---
UR CLINICAL REVIEW: OLGA LIDIA, MEETS OBS FOR UNDIAGNOSED ABDOMINAL PAIN DUE TO NEED FOR IV ANALGESICS, IV PPI EOCCO OBS 08/22/24 @ 7:10 PM ORDER MATCHES REG NO AUTH REQUIRED FOR OBS PER MEDICAID RULE PLAN TO DC TO HOME WHEN MEDICALLY CLEARED. 08/24/2024
[2024-08-23] MEDS ORDERED: LEVOTHYROXINE88 MCG PO (08:38)
[2024-08-23] MEDS ORDERED: IBUPROFEN600 MG PO (08:40)
[2024-08-23] MEDS ORDERED: LAMOTRIGINE200 MG PO (08:41)
[2024-08-23] MEDS ORDERED: GUANFACINE HCL2 MG PO (08:41)
[2024-08-23] MEDS ORDERED: LURASIDONE HCL40 MG PO (08:42)
[2024-08-23] MEDS ORDERED: LEVOTHYROXINE SODIUM 25 MCG TAB PO SCH (09:00)
[2024-08-23] MEDS ORDERED: PANTOPRAZOLE SODIUM 40 MG/10 ML VIAL IV SCH (09:00)
[2024-08-23] MEDS ORDERED: FISH OIL 1,0001 EAC6 PO (10:10)
[2024-08-23] MEDS ORDERED: MILK THISTLE150 MG PO (10:10)
[2024-08-23] MEDS ORDERED: VITAMIN E268 M1 PO (10:10)
--- NOTE | 2024-08-23 10:10 | NUR ---
MED REC COMPLETE
--- NOTE | 2024-08-23 10:35 | NUR ---
ALERT AND ORIENTED IN BED. STATES SHE LIVE IN APARTMENT NO STAIRS. SHE DRIVES AT BASELINE AND ONLY HAS CPAP FOR DME. STATES SHE HAS NO DIFFICULTY PAYING UTILITIES, FOOD OR MEDICATIONS. NO KNOWN CM NEEDS AT THIS TIME. PLAN TO DC TO HOME WHEN MEDICALLY STABLE.
[2024-08-23] MEDS ORDERED: PHARMACY RENAL DOSE ADJUSTMENT 1 DOSE MISC PO SCH (12:00)
--- NOTE | 2024-08-23 12:10 | NUR ---
In with pt in response to call light, patient "has to use the restroom". Non-slip socks were put on patient's feet prior to her exiting the bed. SBA only. Pt ambulated to the bathroom with IV pole, no complaints. 2 collection hats placed in toilet to collect urine for output measurement and for stool collection. Pt's mother is insistent on staff collecting a stool sample. Advised pt and family that there is no order for a stool collection or labs ordered for such, but that I would still collect the sample at her request. Encouraged pt to use call light when she is finished. Pt used call light when she finished and Marisa Hagen collected stool sample in specimen cup, double bagged it in lab bags, and left it in the bathroom until/unless the order is received. There is a physician consult for Dr. Jacobo but he has not seen the patient yet.
--- NOTE | 2024-08-23 12:20 | NUR ---
PT NOT AVAILABLE FOR VISIT. PROVIDED PRAYER.
--- NOTE | 2024-08-23 16:43 | NUR ---
Advised by Marisa Hagen, that the pt is aware that her shower items are set up for her and she needs to use the call light when she is ready to shower; however, it is now just before dinner, and she has not showered. Will encourage pt to shower after dinner.
--- NOTE | 2024-08-23 17:26 | NUR ---
Advised by bead pickerSALVADOR Cook that this pt is requesting to go home. Lima contacted Dr. Cagle and advised him of this.
[2024-08-23] MEDS ORDERED: OMEPRAZOLE20 MG PO (18:10)
--- NOTE | 2024-08-23 18:35 | NUR ---
Stool specimen was collected earlier this afternoon and just now sent to the lab per order placed by Dr. Cagle
[2024-08-23] MEDS ORDERED: GABAPENTIN 300 MG CAP PO SCH (21:00)
[2024-08-24] MEDS ORDERED: LEVOTHYROXINE SODIUM 88 MCG TAB PO SCH (06:00)
[2024-08-24] MEDS ORDERED: PROCHLORPERAZIN10 MG PO (10:54)
[2024-08-24] MEDS ORDERED: ONDANSETRON ODT8 MG PO (10:54)
[2024-08-24] MEDS ORDERED: HYDROCODON-ACE1 EA11 PO (10:54)
== END 2024-08-23 18:43 | disposition home or self-care (01) ==
LOC: ED 13:53 → MS 15:54
PROVIDERS: Emergency Medicine; ADMIT Student in an Organized Health Care Education/Training Program; ATTEND Student in an Organized Health Care Education/Training Program
DX: K21.9 Gastro-esophageal reflux disease without esophagitis (principal); R00.1 Bradycardia, unspecified; E03.9 Hypothyroidism, unspecified; F39 Unspecified mood [affective] disorder; E66.813 Obesity, class 3; Z68.42 Body mass index [BMI] 45.0-49.9, adult; I10 Essential (primary) hypertension; Z88.2 Allergy status to sulfonamides; Z88.8 Allergy status to other drugs, medicaments and biological substances; Z79.899 Other long term (current) drug therapy
CPT/HCPCS: 36415; 74177; 80048; 80053; 81001; 83605; 83690; 83735; 84484; 84702; 84703; 85025; 87077; 93005; 93010; 94799; 96361; 96375; 96376; 99285-25; G0378; J1171; J2270; J2405; J2470; J7030; J7121; Q9967

== ENCOUNTER 2024-08-24 08:47 | Emergency (ER) | payer OTHER ==
[~2024-08-24] VITALS: Ht 180.3 cm; Wt 156.0 kg
[~2024-08-24 08:47] MED LIST changes: +FISH OIL 1,0001 EAC6 PO; +GUANFACINE HCL2 MG PO; +HYDROXYZINE HCL25 MG PO; +LAMOTRIGINE200 MG PO; +LEVOTHYROXINE88 MCG PO; +LURASIDONE HCL40 MG PO; +MILK THISTLE150 MG PO; +OMEPRAZOLE20 MG PO; +TRAZODONE HCL50 MG PO; +VITAMIN E268 M1 PO
--- OUTSIDE RECORDS SUMMARY | 2024-08-24 08:54 | XMS ---
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 Reymundo VISIT COUNT (12 MO.) 2 [facility] TOTAL 2 NOTE: Visits indicate total known visits. ED/UCC VISIT TRACKING (12 MO.) 08/24/2024 08:48 [facility] [place] TYPE: Emergency COMPLAINT: - ABDOMINAL PAIN 08/22/2024 13:53 [facility] [place] TYPE: Emergency COMPLAINT: - ABDOMINAL PAIN INPATIENT VISIT TRACKING (12 MO.) 08/22/2024 15:54 [facility] [place] TYPE: Observation COMPLAINT: - INTRACTABLE ABDOMINAL PAIN [email or web address]
[2024-08-24 09:23] LABS: BILIRUBIN, URINE NEGATIVE (negative); BLOOD/HGB, URINE TRACE-I (Negative); KETONE, URINE SMALL (Negative); LEUK ESTERASE, URINE NEGATIVE (negative); NITRITE, URINE NEGATIVE (negative)
[2024-08-24 09:24] LABS: BASOPHILS 0.4 % (0-2); EOSINOPHILS 0.8 % (0-6); HEMATOCRIT 43.2 % (35.0-50.0); LYMPHOCYTES 17.4 % (24-44); MCH 30.7 (27-36); MCHC 34.7 g/dl (30-36); MCV 88.6 fl (81-99); MONOCYTES 6.9 % (0-12); NEUTROPHILS 74.5 % (39-80); PLATELET COUNT 269 K/uL (140-440); RBC 4.88 M/ul (4.3-5.7); RDW 13.5 (10.5-15.0)
[2024-08-24] MEDS ORDERED: PANTOPRAZOLE SODIUM 40 MG/10 ML VIAL IV ONE (09:30)
[2024-08-24] MEDS ORDERED: droPERidol 5 MG/2 ML VIAL IV ONE (09:30)
[2024-08-24] MEDS ORDERED: LIDOCAINE & ANTACID 35 ML BTL PO ONE (09:30)
[2024-08-24] MEDS ORDERED: HYDROmorphone HCL 1 MG/ML SYR IV PRN (09:30)
[2024-08-24] MEDS ORDERED: SODIUM CHLORIDE 0.9% 1,000 ML IV ONE (09:30)
[2024-08-24 09:38] LABS: ALBUMIN/GLOBULIN RATIO 1.25 (1.1-2.4); ANION GAP 13.6 (7-21); BILIRUBIN, TOTAL 0.9 mg/dL (0.2-1.0); BUN/CREATININE RATIO 10.3 (6.0-28.6); CALCIUM 8.7 mg/dL (8.5-10.1); CREATININE, SERUM 0.97 mg/dL (0.55-1.02); POTASSIUM 3.6 mmol/L (3.5-5.1); PROTEIN, TOTAL 7.2 g/dL (6.4-8.2)
[2024-08-24 09:48] LABS: BACTERIA, URINE RARE /hpf (negative); CASTS, URINE NONE SEEN \\lpf; COLLECTION TYPE, URINE CLEAN CATCH; CRYSTALS, URINE NONE SEEN (0-1+); EPITHELIAL CELLS, URINE SQUAMOUS 2+ /lpf (0-1+); RED BLOOD CELLS, URINE 0-1 /hpf (0-5); WHITE BLOOD CELLS, URINE 0-1 /HPF (0-5)
[2024-08-24 09:49] LABS: REFLEX CULTURE, URINE No (No)
[2024-08-24] MEDS ORDERED: HYDROCODON-ACE1 EA11 PO (10:54)
[2024-08-24] MEDS ORDERED: ONDANSETRON ODT8 MG PO (10:54)
[2024-08-24] MEDS ORDERED: PROCHLORPERAZIN10 MG PO (10:54)
[2024-08-24 11:27] VITALS: BP 133/79
== END 2024-08-24 11:30 | disposition home or self-care (01) ==
LOC: ED 08:47
PROVIDERS: Emergency Medicine
DX: R10.84 Generalized abdominal pain (principal); F43.10 Post-traumatic stress disorder, unspecified; F17.200 Nicotine dependence, unspecified, uncomplicated; Z88.2 Allergy status to sulfonamides; Z79.899 Other long term (current) drug therapy; Z88.8 Allergy status to other drugs, medicaments and biological substances
CPT/HCPCS: 36415; 76705; 80053; 81001; 83690; 84703; 85025; 96361; 96374; 96375; 96376; 99284-25; J1171; J1790; J2470; J7030